=== PATIENT | male | born 1985 | race Caucasian/White ===

== ENCOUNTER 2020-07-24 18:35 | Emergency (ER) | payer OTHER ==
[~2020-07-24] VITALS: Ht 188 cm; Wt 106.6 kg
[2020-07-24 18:35] VITALS: BP_SYST 130
--- NOTE | 2020-07-24 18:35 | NUR ---
BROUGHT BACK TO BED #7 AND TRIAGED. REPORT GIVEN TO REBECCA
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
--- NOTE | 2020-07-24 18:41 | NUR ---
DR CASANOVA AT BEDSIDE FOR EVALUATION
--- NOTE | 2020-07-24 18:57 | NUR ---
ER DR. CASANOVA AT THE BEDSIDE EXAMINING PT
[2020-07-24 19:14] VITALS: BP_SYST 166
--- NOTE | 2020-07-24 19:14 | NUR ---
REPORT GIVEN TO ALEXANDRU WADSWORTH FOR CONTINUING CARE
--- NOTE | 2020-07-24 19:14 | NUR ---
Assumed care of patient at change of shift. Returned from radiology, back to [facility]. Introduced self to patient, positioned for comfort and safety w/ bed to low position sr up. Patient resting quietly. No acute distress noted. Vital signs within normal range. Continue to monitor level of comfort.
[2020-07-24] MEDS ORDERED: NAPR-690 PO (21:04)
--- NOTE | 2020-07-24 21:12 | NUR ---
Patient given written and verbal discharge instructions and verbalizes understanding. ER MD discussed with patient the results and treatment provided. Patient in stable condition. ID arm band removed. Rx of given. Patient educated on pain management and to follow up with PMD. Pain Scale Napoxen. Opportunity for questions provided and answered. Medication side effect fact sheet provided. patient dc'd by MD Andres
== END 2020-07-24 21:12 | disposition home or self-care (01) ==
LOC: SED 18:35
DX: S20.213A Contusion of bilateral front wall of thorax, initial encounter (principal); W21.05XA Struck by basketball, initial encounter; Y93.67 Activity, basketball; Y92.89 Other specified places as the place of occurrence of the external cause; Y99.8 Other external cause status
CPT/HCPCS: 71250-TC; 76376; 99284

== ENCOUNTER 2020-08-04 12:43 | Emergency (ER) | payer OTHER ==
[~2020-08-04] VITALS: Ht 193 cm; Wt 106.6 kg
[~2020-08-04 12:43] MED LIST: NAPR-690 PO
--- NOTE | 2020-08-04 12:45 | NUR ---
Patient to ER bed 7 to gown for evaluation. Side rails up.
[2020-08-04 12:52] VITALS: BP_SYST 143
--- NOTE | 2020-08-04 14:00 | NUR ---
ER at bedside examining patient.
[2020-08-04 14:30] VITALS: BP_SYST 143
--- NOTE | 2020-08-04 14:30 | NUR ---
Patient given written and verbal discharge instructions and verbalizes understanding. ER MD discussed with patient the results and treatment provided. Patient in stable condition. ID arm band removed. Rx of naproxen given. Patient educated on pain management and to follow up with PMD. Pain Scale 0. Opportunity for questions provided and answered. Medication side effect fact sheet provided.
[2020-08-04] MEDS ORDERED: NAPR-688 PO (14:41)
== END 2020-08-04 14:30 | disposition home or self-care (01) ==
LOC: SED 12:43
DX: R07.89 Other chest pain (principal); Z79.899 Other long term (current) drug therapy
CPT/HCPCS: 99282